=== PATIENT | female | born 1995 | race Caucasian/White ===

== ENCOUNTER 2024-01-29 03:51 | Inpatient (IN) ==
--- NOTE | 2024-01-29 05:26 | History & Physical Report ---
Date of Service January 29, 2024 Assessment & Plan (1) Breech presentation: Plan: Spontaneous labor. Recommend delivery by section. Reviewed consent in detail, questions answered. She is agreeable to proceed. History of Present Illness Chief Complaint: labor, breech Primary Care Provider: CASTRO Flores 29yo @ 38 6/7, spontaneous rupture of membranes at 3:30am for clear fluid. Then started feeling ctx. + movement, no vaginal bleeding. Obesity (BMI 40 and higher @ beginning of ) *Growth US @ 32wks *Weekly NSTs @ 34wks *BMI 40 or greater offer detailed/level II anatomy at [facility] *BMI 40 or above offer delivery by [facility]. * nonimmune to Hepatitis B Anatomy scan at [facility] with missed views -Follow up scheduled for 12/04/23 at [facility]DM at 21wks *Begin monthly Growth US's @24wks BREECH PRESENTATION C/S SCHEDULED FOR 02/01/[address] MORLEY AND DR. SINGH ASSIST Allergies Allergy/AdvReac Type Severity Reaction Status Date / Time Sulfa (Sulfonamide Allergy Unknown Unknown Verified 01/28/24 12:08 Antibiotics) Home Medications Medication Instructions Recorded Confirmed Type aspirin 81 mg tablet,delayed 81 mg PO HS 08/31/23 01/29/24 History release (Adult Low Dose Aspirin) [id number] 1 mg 1 tab PO QAM 08/31/23 01/29/24 History tablet ondansetron HCl 4 mg tablet 4 mg PO Q6H PRN nausea and 09/01/23 01/29/24 Rx vomiting #30 tabs acetone (urine) test (Ketone Urine #50 ea 10/12/23 01/28/24 Rx Test strips) blood sugar diagnostic (G[employer]Touch #150 ea 10/12/23 01/28/24 Rx Verio test strips) blood-glucose meter (OneTouch #1 ea 10/12/23 01/28/24 Rx Verio Reflect Meter) lancets 33 gauge (OneTouch Delica #150 ea 10/12/23 01/28/24 Rx Plus Lancet) breast pump #1 ea 12/21/23 01/28/24 Rx inulin 2 gram chewable tablet 2 g PO QAM 01/19/24 01/29/24 History (Fiber Gummies) Patient History Medical History Gestational diabetes No meds Surgical History S/P tonsillectomy S/P wisdom tooth extraction Family History Father Prostate cancer Family/Other OCD (obsessive compulsive disorder) Bipolar disorder Denies family history of Ovarian cancer Myocardial infarction Breast cancer Colorectal cancer Social History (Updated 08/31/23 @ 09:59 by Grace Rodriguez) Smoking Status: Never smoker Second Hand Exposure: No; Do You Dip or Chew Tobacco: No; Hx Alcohol Use: No Hx Substance Use: No Preferred Language: St Helen[place] Communication Ability: Effective Welding Machine Operator Helper Gas Required: No Beliefs That Will Affect Care: None marital status: marital status details: Toan (25) [phone] Current Living Situation: Spouse Current Living Situation Comment: lives with spouse, no pets current occupational status: employed current occupation: Insurance for [facility] Other Information That Helps Us Care for You: No Feels Safe at Home: Yes Safety Concerns: Feels Safe At This Time Childhood Exposure to Second-Hand Smoke: No Diet: regular Dental Care, Regularly: Yes Physical Activity Frequency: 1-2 Times per Week Seatbelt Use: always Sunscreen Use: Yes Assistive Devices: None Review of Systems All systems reviewed & are unremarkable except as noted in HPI & below Physical Exam Physical Exam: FHT Cat 1 [place] Q 2 SVE 6/80/-2, grossly ruptured for +nitrizine Limited bedside US: breech, fundal placenta Constitutional: WD/WN, vitals as above Respiratory: normal respiratory effort, lungs clear to auscultation no respiratory distress Cardiovascular: Rate/Rhythm: regular rate and regular rhythm Gastrointestinal (Abdomen): Inspection/Auscultation: abdomen normal to inspection Percussion/Palpation: abdomen soft; abdomen nontender Gravid. No s/s chorio or abruption. Skin: no rashes, warm and dry Psychiatric: A+Ox3, euthymic affect Results & Data Vital Signs (Past 12 Hours) Vital Signs Temp Pulse Resp BP 01/29/24 04:40 91 H 127/96 01/29/24 04:27 36.8 C 16 Coding Level of Care Code None Diagnoses Breech presentation O32.1XX0
[2024-01-29] MEDS: LACTATED RINGER'S 1,000 ML IV SCH ×2 (05:46→06:15)
[2024-01-29 05:54] LABS: Hematocrit (blood only) 36.7 % (37.0-47.0); Mean Corpuscular Hemoglobin 26.4 pg (25.0-34.0); Mean Corpuscular Hgb Conc 32.7 g/dL (32.0-36.0); Mean Corpuscular Volume 80.8 fL (80.0-100.0); Mean Platelet Volume 9.4 fL (9.4-12.4); Platelet Count 283 K/uL (130-400); RDW Coefficient of Variation 14.3 % (11.5-14.5); RDW Standard Deviation 41.4 fL (36.4-46.3); Red Blood Count 4.54 M/uL (4.20-5.40); White Blood Count 9.05 K/ul (4.8-10.8)
[2024-01-29] MEDS ORDERED: AZITHROMYCIN 500 MG in DEXTROSE 5% 250 ML IV SCH (06:00)
[2024-01-29] MEDS: ACETAMINOPHEN 500 MG TAB PO SCH (06:03)
[2024-01-29] MEDS: AZITHROMYCIN 250 MG TAB PO SCH (06:05)
--- NOTE | 2024-01-29 06:17 | Anesthesiology Consultation ---
Date of Service January 29, 2024 Assessment & Plan (1) Encounter for pre-operative examination: Chart Review Chart Review: Patient NOT seen in Pre Admission Testing Consults Requested none History Surgery Operation Date: 01/29/24 05:55 Proposed Procedures p Section in [place] - Emily Bhakta DO Johan Height/Weight Height: 5 ft 3 in Weight: 117.934 kg Allergies Allergy/AdvReac Type Severity Reaction Status Date / Time Sulfa (Sulfonamide Allergy Unknown Unknown Verified 01/28/24 12:08 Antibiotics) Medications Home Medications Medication Instructions Recorded Confirmed Last Taken aspirin 81 mg tablet,delayed 81 mg PO HS 08/31/23 01/29/24 01/28/24 23:00 release (Adult Low Dose Aspirin) [id number] 1 mg 1 tab PO QAM 08/31/23 01/29/24 01/28/24 23:00 tablet ondansetron HCl 4 mg tablet 4 mg PO Q6H PRN nausea and 09/01/23 01/29/24 Unknown vomiting #30 tabs acetone (urine) test (Ketone Urine #50 ea 10/12/23 01/28/24 Unknown Test strips) blood sugar diagnostic (OneTouch #150 ea 10/12/23 01/28/24 Unknown Verio test strips) blood-glucose meter (OneTouch #1 ea 10/12/23 01/28/24 Unknown Verio Reflect Meter) lancets 33 gauge (OneTouch Delica #150 ea 10/12/23 01/28/24 Unknown Plus Lancet) breast pump #1 ea 12/21/23 01/28/24 Unknown inulin 2 gram chewable tablet 2 g PO QAM 01/19/24 01/29/24 1 Week Ago (Fiber Gummies) ~01/22/24 Active Medications Generic Name Dose Route Start Last Admin Trade Name Freq PRN Reason Stop Dose Admin Acetaminophen 1,000 mg 01/29/24 06:00 01/29/24 06:03 Acetaminophen 500 Mg Tab PO 01/29/24 18:00 1,000 mg PREOP ERICK Administration Lactated Ringer's 1,000 mls @ 125 mls/hr 01/29/24 06:30 01/29/24 05:46 Lr IV 02/28/24 06:29 50 mls/hr .Q8H ERICK Administration Past Medical History Medical History Gestational diabetes No meds Past Family History Family History Father Prostate cancer Family/Other OCD (obsessive compulsive disorder) Bipolar disorder Denies family history of Ovarian cancer Myocardial infarction Breast cancer Colorectal cancer Past Surgical History Surgical History S/P tonsillectomy S/P wisdom tooth extraction Social History Smoking Status: Never smoker Do You Dip or Chew Tobacco: No Hx Alcohol Use: No Hx Substance Use: No substance use type: does not use Physical Exam Vital Signs Last Vital Signs Temp 98.2 F 01/29/24 04:27 Pulse 91 H 01/29/24 04:40 Resp 16 01/29/24 04:27 BP 127/96 01/29/24 04:40 Testing Laboratory Results 01/29/24 05:37
[2024-01-29] MEDS ORDERED: KETOROLAC 30 MG/ML VIAL ONE (06:23)
[2024-01-29] MEDS ORDERED: MoRPHine SULFATE PF 1 MG/ML 10 ML AMP/VIAL ONE (06:23)
[2024-01-29] MEDS ORDERED: OXYTOCIN 10 UNITS/ML VIAL ONE (06:23)
[2024-01-29] MEDS ORDERED: ONDANSETRON INJ 2 MG/ML 2 ML VIAL ONE (06:23)
[2024-01-29] MEDS ORDERED: fentaNYL citrate PF 100 MCG/2 ML VIAL ONE (06:23)
[2024-01-29] MEDS ORDERED: PHENYLEPHRINE HCL 25 MG/250 ML NSS IV ONE (06:23)
[2024-01-29] MEDS: ceFAZolin 3000MG 3,000 MG/72.5 ML BAG IV SCH (06:34)
[2024-01-29] MEDS: CITRIC ACID/SODIUM CITRATE 15 ML UDC PO SCH (06:36)
[2024-01-29] MEDS ORDERED: NALOXONE HCL 1 MG in SODIUM CHLORIDE 0.9% 1,000 ML IV PRN (07:10)
[2024-01-29] MEDS ORDERED: ACETAMINOPHEN 1,000 MG/100 ML VIAL IV PRN (07:10)
[2024-01-29] MEDS ORDERED: HYDROmorphone INJ 0.5 MG/0.5 ML SYR IV PRN (07:10)
[2024-01-29] MEDS ORDERED: diphenhydrAMINE 50 MG/ML VIAL IV PRN (07:10)
[2024-01-29] MEDS ORDERED: NALOXONE HCL 0.4 MG/1 ML VIAL/CARP IV PRN (07:10)
[2024-01-29] MEDS ORDERED: PROMETHAZINE 6.25 MG/50.25 ML BAG IV PRN (07:10)
[2024-01-29] MEDS ORDERED: ePHEDrine sulfate 50 MG/ML AMP IV PRN (07:10)
[2024-01-29] MEDS ORDERED: LACTATED RINGER'S 500 ML IV PRN (07:10)
[2024-01-29] MEDS ORDERED: NALOXONE HCL 0.08 MG in SYRINGE 1.8 ML IV PRN (07:10)
[2024-01-29] MEDS ORDERED: SODIUM CHLORIDE 0.9% 1,000 ML IV SCH (07:15)
[2024-01-29] MEDS ORDERED: DC INTRASPINAL MORPHINE SCH (07:15)
[2024-01-29] MEDS ORDERED: NO NARCOTICS OR SEDATIVES SCH (07:15)
[2024-01-29] MEDS: OXYTOCIN 30 UNITS/500ML NSS IV ONE (07:21)
[2024-01-29 07:56] LABS: Base Excess Cord Arterial Bld -1.7 mEq/L (-9-1.8); CO2 Cord Arterial Blood 61 mmHg (39.1-73.5); HCO3 Cord Arterial Blood 27 mmol/L (19.7-28.5); Oxygen Sat Cord Arterial Blood < 60.0 % (<60); PO2 Cord Arterial Blood < 20 mmHg (4.1-31.7); pH Cord Arterial Blood 7.25 (7.1-7.38)
[2024-01-29 07:59] LABS: Base Excess Cord Venous Blood -2.4 mEq/L (-7.7-1.9); Cord Venous Blood HCO3 23 mmol/L (18.4-26.8); Cord Venous Blood PCO2 42 mmHg (30.4-57.2); Cord Venous Blood PO2 32 mmHg (14.1-43.3); Cord Venous Blood pH 7.35 (7.20-7.44); O2 Saturation Cord Venous Bld 71.1 % (<68)
--- NOTE | 2024-01-29 08:20 | Operative Report ---
PG Post Operative Report Pre & Post Diagnosis Operation Date: 01/29/24 05:55 Pre-Op Diagnosis: Primary Section for breech presentation, labor Post-Op Diagnosis: Same I identified the patient and participated in the time-out.: Yes Procedure Operation Date: 01/29/24 05:55 Actual Procedures p Primary Low Transverse Section in for breech presentation at 0719 - Emily Prado DO Surgeon Emily Prado DO Teasel Gig Operator Alan Reyes MD Estimated Blood Loss 505 (QBL) Findings Consistent with Post-Op Diagnosis Viable female , Apgars 8/9. Normal appearing uterus, fallopian tubes, ovaries. Specimens placenta, cord blood, cord gas Drains hughes clear yellow Anesthesia Type Spinal Complications none Disposition Accompanied Patient To Recovery: Yes Indications 29yo @ 38 6/7, breech presentation in labor. Description of Procedure The patient was seen in her labor and delivery room, risks benefits and alternatives to surgery were reviewed. Informed consent obtained. Questions were answered. She was taken to the operating room, spinal anesthesia was administered. She was then prepared and draped in the usual sterile fashion in the supine position with a leftward tilt. Timeout was confirmed. A Pfannenstiel skin incision was made with a scalpel, and carried through to the underlying layer of fascia. Fascia was nicked at midline, and this incision was extended bilaterally. The superior aspect of the fascial incision was grasped with Leann clamps x2, elevated off the underlying rectus abdominis muscles, and dissected sharply and bluntly. In similar fashion, the inferior aspect of the fascial incision was dissected. The rectus abdominis muscles were , and the peritoneum was entered bluntly digitally. This was extended bilaterally. The bladder flap was taken down carefully using Metzenbaum scissors. Using a new scalpel, a low transverse uterine incision was created. Clear amniotic fluid noted. The infant was delivered from a breech presentation. The buttocks delivered, followed by legs. Arms swept medially, then head delivered. Spontaneous cry on the field. The cord was doubly clamped and cut, and the was handed off to the waiting road worker. A segment was retained for cord gases. Cord blood was obtained. The placenta was delivered spontaneously intact. The uterus was exteriorized, and cleared of all clots and debris. The hysterotomy incision was reapproximated using 0 Vicryl in a running locked stitch. A second layer of the same suture was used to imbricate the incision. Posterior uterus was evaluated and normal. The uterus was returned to the abdomen, and gutters were cleared of clots and debris. Excellent hemostasis was observed. The fascial incision was reapproximated using 0 Vicryl in a running stitch. The subcutaneous tissue was irrigated, and reapproximated using 2-0 plain gut in a running stitch, 2nd layer of plain gut used to reapproximate the incision. The skin was reapproximated using 4-0 Vicryl in a running subcuticular stitch. Steri-Strips and a bandage were applied. The patient tolerated the procedure well, and will be taken to the recovery area in stable and good condition. I attest to the content of the Intraoperative Record and any orders documented therein. Any exceptions are noted below. OB Procedure Charges 11203
--- NOTE | 2024-01-29 08:24 | Anesthesiology Progress Note ---
Date of Service January 29, 2024 Anesthesia Post Procedure Vital Signs Vital Signs: Temp Pulse Resp BP Pulse Ox 01/29/24 08:18 62 100 01/29/24 08:14 68 122/65 01/29/24 08:13 73 99 01/29/24 04:40 91 H 127/96 01/29/24 04:27 36.8 C 16 Transfer of Care Handoff Completed per policy Notes Mental Status: alert / awake / arousable Nausea / Vomiting: adequately controlled Pain: adequately controlled Airway Patency, RR, SpO2: stable & adequate BP & HR: stable & adequate Hydration State: stable & adequate Neuraxial Anesthesia: was administered and sensory block is resolving Anesthetic Complications: no major complications apparent and Pt Satisfied with anesthetic care
[2024-01-29] MEDS ORDERED: LACTATED RINGER'S 1,000 ML IV SCH (08:34)
[2024-01-29] MEDS ORDERED: HYDROCORTISONE ACETATE 25 MG SUPP PR PRN (08:34)
[2024-01-29] MEDS ORDERED: OXYTOCIN 20 UNITS/LR 1,002 ML IV SCH (08:34)
[2024-01-29] MEDS ORDERED: SENNA 8.6 MG TAB PO PRN (08:34)
[2024-01-29] MEDS ORDERED: MAGNESIUM HYDROXIDE SUSP 30 ML UDC PO PRN (08:34)
[2024-01-29] MEDS ORDERED: BENZOCAINE 20% SPRY 85 APPLN/85 GM CAN EXT PRN (08:34)
[2024-01-29] MEDS ORDERED: ONDANSETRON INJ 2 MG/ML 2 ML VIAL IV PRN (08:34)
[2024-01-29] MEDS: NALBUPHINE HCL INJ 10 MG/ML AMP IV PRN (09:11)
[2024-01-29] MEDS: MoRPHine SULFATE PF 1 MG/ML 10 ML AMP/VIAL INT SPINAL ONE (11:32)
[2024-01-29] MEDS: DIPHTHER/TETAN/PERTUS Vaccine (Tdap, Adol/Adult) 0.5mL IM ONE (11:33)
[2024-01-29] MEDS ORDERED: Nursing to Pharmacy Communication SCH (12:15)
[2024-01-29] MEDS ORDERED: SODIUM CHLORIDE 0.9% 250 ML IV PRN (12:15)
[2024-01-29] MEDS: SIMETHICONE 80 MG CHEW PO SCH (12:43)
[2024-01-29] MEDS: ACETAMINOPHEN 325 MG TAB PO SCH (12:44)
[2024-01-29] MEDS: KETOROLAC 30 MG/ML VIAL IV SCH (12:44)
[2024-01-29] MEDS: ONDANSETRON INJ 2 MG/ML 2 ML VIAL IV PRN (12:50)
[2024-01-29] MEDS: DOCUSATE SODIUM 100 MG CAP PO SCH (23:54)
[2024-01-30] MEDS ORDERED: KETOROLAC 30 MG/ML VIAL IV SCH (01:10)
[2024-01-30] MEDS ORDERED: diphenhydrAMINE Capsule 25 MG CAP PO PRN (01:11)
[2024-01-30] MEDS ORDERED: diphenhydrAMINE 50 MG/ML VIAL IV PRN (01:11)
[2024-01-30] MEDS ORDERED: HYDROmorphone INJ 0.5 MG/0.5 ML SYR IV PRN (01:11)
[2024-01-30] MEDS ORDERED: PROMETHAZINE 12.5 MG/50.5 ML BAG IV PRN (01:11)
--- NOTE | 2024-01-30 05:39 | Obstetrical Progress Note ---
Date of Service <Greg Whitingkhanh - Last Filed: 01/30/24 07:17> January 30, 2024 Assessment & Plan <Greg WhitingDO khanh - Last Filed: 01/30/24 07:17> (1) state: Patient is a 29yo day 1 s/p for breech presentation. Patient feeling well today, BP slightly low otherwise VSS Continue care, wound care Ambulation and as tolerated Pain control w/ ibuprofen Hb.1, down from 12.0 yesterday Home: possibly tomorrow 01/31/[address] Prado in 6wks. <Jessy Reyes MD - Last Filed: 01/30/24 07:19> (1) state: Subjective <Greg Beltran - Last Filed: 01/30/24 07:17> Patient is a 29yo day 1 s/p for breech presentation. Ambulation: yes Voiding: urinating, no BM yet Passing gas: yes Diet tolerance: tolerating OB reg Lochia: decreasing Feeding type: breast Current pain: 2/10 Resting comfortably this AM in NAD. Denies fever, body aches, chills, SOB, n/v/d, LE pain/swelling, LE numbness/tingling. Review of Systems as above Physical Exam <Greg Whitingkhanh - Last Filed: 01/30/24 07:17> General: A&Ox4, patient in mild distress, appearing tired Skin: low transverse scar healing well, mild tenderness to palpation, mild amount of dry blood on R side of scar, otherwise no erythema or swelling; skin otherwise warm, dry, intact HEENT: NC/AT, anicteric sclerae, conjunctive w/o injection Heart: RRR, no m/r/g Lungs: clear to auscultation b/l, equal air entry, no wheezing, rales, rhonchi Abd: +BM, uterus firm, fundus at level of umbilicus, mildly tender to palpation, no tenseness or guarding Ext: no erythema, swelling, or tenderness to palpation; Ezequiel's neg, no clubbing or cyanosis Neuro: speech intact, no facial droop, moving all ext on command and spontaneously Results & Data <Greg Beltran DO - Last Filed: 01/30/24 07:17> Vital Signs (Past 12 Hours) Vital Signs Temp Pulse Resp BP Pulse Ox O2 Del Method 01/30/24 03:45 36.7 C 70 18 99/56 L 100 Room Air 01/30/24 00:30 37.3 C 65 18 97/58 L 96 Room Air 01/29/24 18:58 36.7 C 69 16 106/61 96 Room Air 01/29/24 18:00 18 97 Supervising Physician <Jessy Reyes MD - Last Filed: 01/30/24 07:19> Co-Signing Physician Notes Resident Physician Supervision Note: I interviewed and examined the patient. Discussed with Dr. Mercedes and agree with findings and plan as documented in the note. Any exceptions or clarifications are listed here: POD1 s/p pLTCS for breech, doing well. VSS, exam benign and wnl. Incision c/d/i. Continue routine care Documented By: Jessy Reyes MD Resident Activity Tracking <Greg Beltran DO - Last Filed: 01/30/24 07:17> Resident Involvement: Resident Care Provided Care Provided: OB Delivery
[2024-01-30 07:07] LABS: Basophils # (auto) 0.03 K/uL (0.00-0.20); Basophils % (auto) 0.4 %; Eosinophils # (auto) 0.08 K/uL (0.00-0.50); Hematocrit (blood only) 30.9 % (37.0-47.0); Hemoglobin 10.1 g/dl (12.0-16.0); Immature Granulocytes # (auto) 0.05 K/uL (0.01-0.20); Immature Granulocytes % (auto) 0.6 %; Lymphocytes # (auto) 1.61 K/uL (1.20-3.40); Lymphocytes % (auto) 20.7 %; Mean Corpuscular Hemoglobin 26.8 pg (25.0-34.0); Mean Corpuscular Hgb Conc 32.7 g/dL (32.0-36.0); Mean Platelet Volume 9.8 fL (9.4-12.4); Neutrophils # (auto) 5.32 K/uL (1.40-6.50); Neutrophils % (auto) 68.3 %; Platelet Count 221 K/uL (130-400); RDW Coefficient of Variation 14.4 % (11.5-14.5); RDW Standard Deviation 42.2 fL (36.4-46.3); Red Blood Count 3.77 M/uL (4.20-5.40); White Blood Count 7.79 K/ul (4.8-10.8)
[2024-01-30] MEDS ORDERED: ACETAMINOPHEN 325 MG TAB PO SCH (07:10)
[2024-01-30] MEDS ORDERED: Nursing to Pharmacy Communication SCH (07:30)
[2024-01-30] MEDS ORDERED: KETOROLAC 30 MG/ML VIAL IV PRN (08:09)
[2024-01-30] MEDS ORDERED: IBUPROFEN 600 MG TAB PO SCH (08:15)
[2024-01-30] MEDS: PRENATAL VITAMIN 1 TAB PO SCH (08:31)
[2024-01-30] MEDS: FERROUS SULFATE 325 MG TAB PO SCH (08:31)
[2024-01-30] MEDS: IBUPROFEN 600 MG TAB PO SCH (12:35)
[2024-01-30] MEDS: CALCIUM CARBONATE 500 MG CHEWABLE TAB PO PRN (12:38)
[2024-01-30] MEDS: oxyCODONE HCL IR 5 MG TAB (IMMEDIATE RELEASE) PO PRN (15:35)
[2024-01-30] MEDS: bisacodyL 5 MG TABEC PO SCH (22:53)
[2024-01-31 06:54] LABS: Hemoglobin 9.6 g/dl (12.0-16.0)
[2024-01-31] MEDS ORDERED: bisacodyL 10 MG SUPP PR PRN (08:09)
--- NOTE | 2024-01-31 08:29 | Obstetrical Progress Note ---
Date of Service January 31, 2024 Assessment & Plan (1) state: Patient is a 29yo day 2 s/p for breech presentation. Patient doing great, labs/vitals reviewed, but lacks confidence with and requests stay until POD#3 to allow additional BF assistance. Subjective Ambulation: ambulating normally Voiding: no voiding problems Passing Gas:: Yes Diet Tolerance:: regular diet Lochia:: Small Feeding Type:: breast feeding Physical Exam Constitutional WD/WN, vitals as above Eyes PERRL, conjunctivae normal, anicteric sclerae Neck normal visual inspection Respiratory normal respiratory effort and able to speak in complete sentences; no respiratory distress and no labored breathing Cardiovascular Rate/Rhythm: regular rate and regular rhythm Extremities: no edema Chest (Breasts) Chest: normal inspection of chest Gastrointestinal (Abdomen) Inspection/Auscultation: abdomen normal to inspection Soft, postgravid Incision c/d/i with Steri Strips Psychiatric A+Ox3, euthymic affect Genitourinary OB Exam Abdomen: + fundal height Fundus: + firm and + relation to umbilicus (fundus just below umbilicus); not tender Results & Data Vital Signs (Past 12 Hours) Vital Signs Temp Pulse Resp BP Pulse Ox O2 Del Method 01/31/24 00:30 98.2 F 68 20 114/78 98 Room Air 01/30/24 22:58 98.1 F 73 16 137/86 97 Room Air
[2024-01-31] MEDS: ACETAMINOPHEN 325 MG TAB PO PRN (13:43)
[2024-01-31] MEDS: IBUPROFEN 600 MG TAB PO PRN (13:43)
[2024-02-01 00:38] VITALS: O2SAT 98
--- NOTE | 2024-02-01 05:43 | Obstetrical Progress Note ---
Date of Service <Greg Beltran DO - Last Filed: 02/01/24 06:30> February 01, 2024 Assessment & Plan <Greg Beltran DO - Last Filed: 02/01/24 06:30> (1) state: Patient is a 29yo day 3 s/p for breech presentation. Patient feeling well today, VSS Continue care, wound care Ambulation and as tolerated Pain control w/ ibuprofen Hb.6 down from 10.1 Home: d/c today Follow up with Dr. Prado in 6wks. <Pita Fregoso MD - Last Filed: 02/01/24 06:40> (1) state: Subjective <Grge Beltran DO - Last Filed: 02/01/24 06:30> Ambulation: yes Voiding: urinating and stooling Passing gas: yes Diet tolerance: tolerating OB reg Lochia: decreasing Feeding type: breast, feeling more confident today Current pain: minimal at incision site Resting comfortably this AM in NAD. Denies fever, body aches, chills, SOB, n/v/d, LE pain/swelling, LE numbness/tingling. Review of Systems as above Physical Exam <Greg Beltran DO - Last Filed: 02/01/24 06:30> General: A&Ox4, patient in NAD, nontoxic in appearance Skin: warm, dry, intact HEENT: NC/AT, anicteric sclerae, conjunctive w/o injection Heart: RRR, no m/r/g Lungs: clear to auscultation b/l, equal air entry, no wheezing, rales, rhonchi Abd: patient at time of exam, abdominal exam deferred Ext: no erythema, swelling, or tenderness to palpation; Ezequiel's neg, no clubbing or cyanosis Neuro: speech intact, no facial droop, moving all ext on command and spontaneously Results & Data <Greg Beltran DO - Last Filed: 02/01/24 06:30> Vital Signs (Past 12 Hours) Vital Signs Temp Pulse Resp BP Pulse Ox O2 Del Method 02/01/24 00:15 36.8 C 78 22 127/81 98 Room Air 01/31/24 20:00 Room Air 01/31/24 20:00 36.7 C 75 20 135/79 100 Room Air Supervising Physician <Pita Fregoso MD - Last Filed: 02/01/24 06:40> Co-Signing Physician Notes Resident Physician Supervision Note: I interviewed and examined the patient. Discussed with Dr. Beltran and agree with findings and plan as documented in the note. Any exceptions or clarifications are listed here: [ ] Documented By: Pita Fregoso MD, FACOG Resident Activity Tracking <Greg Beltran, - Last Filed: 02/01/24 06:30> Resident Involvement: Resident Care Provided Care Provided: OB Delivery
[2024-02-01 12:21] VITALS: RESP 18; TEMP 97.7
[2024-02-01 12:32] VITALS: BP 99/72; PULSE 70
[2024-02-01] MEDS: MEASLES, MUMPS & RUBELLA VIRUS VACCINE (MMR) 0.5ML VIAL SQ ONE (13:28)
--- NOTE | 2024-02-02 10:58 | Discharge Summary ---
Date of Service February 02, 2024 Admission HPI Per Admitting Provider 29yo @ 38 6/7, spontaneous rupture of membranes at 3:30am for clear fluid. Then started feeling ctx. + movement, no vaginal bleeding. Obesity (BMI 40 and higher @ beginning of ) *Growth US @ 32wks *Weekly NSTs @ 34wks *BMI 40 or greater offer detailed/level II anatomy at [facility] *BMI 40 or above offer delivery by [facility]. * nonimmune to Hepatitis B Anatomy scan at [facility] with missed views -Follow up scheduled for 12/04/23 at [facility] GDM at 21wks *Begin monthly Growth US's @24wks BREECH PRESENTATION C/S SCHEDULED FOR 02/01/[address] MORLEY AND DR[address] FREGOSO ASSIST Admission Exam (Per Admitting) Constitutional WD/WN, vitals as above Respiratory normal respiratory effort, lungs clear to auscultation no respiratory distress Cardiovascular Rate/Rhythm: regular rate and regular rhythm Gastrointestinal (Abdomen) Inspection/Auscultation: abdomen normal to inspection Percussion/Palpation: abdomen soft; abdomen nontender Skin no rashes, warm and dry Psychiatric A+Ox3, euthymic affect Discharge Data Consultations 01/29/24 05:22 Consult Anesthesiology Stat Procedures Performed Operation Date: 01/29/24 05:55 Actual Procedures p Primary Section in LD for breech presentation at [address] Prado - Emily Prado, DO s Section in LD Hospital Course (1) state: Patient is a 29yo day 3 s/p for breech presentation. Patient feeling well today, VSS Continue care, wound care Ambulation and as tolerated Pain control w/ ibuprofen Hb.6 down from 10.1 Home: d/c today Follow up with Dr. Prado in 6wks. Supervising Physician Co-Signing Physician Notes Resident Physician Supervision Note: I interviewed and examined the patient. Discussed with Dr. Beltran and agree with findings and plan as documented in the note. Any exceptions or clarifications are listed here: [ ] Documented By: Pita Fregoso MD, FACOG Coding Level of Care Code None Diagnoses state Z39.2
== END 2024-02-01 15:18 | disposition home or self-care (01) | DRG 788 ==
LOC: OPB 03:51 → 4S1 04:04 → 4E1 11:26